=== PATIENT | male | born 1945 | race Caucasian/White ===

== ENCOUNTER 2019-01-10 15:56 | Emergency (ER) | payer MEDICARE, BC ==
[~2019-01-10] VITALS: Ht 172.7 cm; Wt 59.0 kg
[2019-01-10] MEDS ORDERED: GABA400 PO (16:09)
[2019-01-10] MEDS ORDERED: ATOR80 PO (16:10)
[2019-01-10] MEDS ORDERED: ANORO ELLIPTA1 EACH INH (16:16)
[2019-01-10 17:22] LABS: BASOPHILS ABSOLUTE AUTO 0.03 K/mm3 (0.00-0.23); BASOPHILS PERCENT AUTO 1 % (0-2); EOSINOPHILS ABSOLUTE AUTO 0.08 K/mm3 (0.00-0.68); EOSINOPHILS PERCENT AUTO 1 % (0-6); Hematocrit 42.8 % (37.0-53.0); Hemoglobin 14.5 g/dL (13.5-17.5); IMMATURE GRAN ABSOLUTE AUTO 0.01 K/mm3 (0.00-0.10); IMMATURE GRAN PERCENT AUTO 0 % (0-1); LYMPHOCYTES ABSOLUTE AUTO 2.16 K/mm3 (0.84-5.20); LYMPHOCYTES PERCENT AUTO 33 % (21-46); MONOCYTES ABSOLUTE AUTO 0.48 K/mm3 (0.16-1.47); MONOCYTES PERCENT AUTO 7 % (4-13); Mean Corpuscular HGB 33.6 pg (26.0-34.0); Mean Corpuscular HGB Conc 33.9 g/dL (31.5-36.5); Mean Corpuscular Volume 99 fL (80-100); Mean Platelet Volume 9.8 fL (9.1-12.4); NEUTROPHILS ABSOLUTE AUTO 3.72 K/mm3 (1.96-9.15); NEUTROPHILS PERCENT AUTO 57 % (41-73); Platelet Count 231 K/mm3 (150-400); RDW Coefficient Variation 13.2 % (11.7-14.2); RDW Standard Deviation 48.9 fL (35.1-46.3); Red Blood Cell Count 4.31 M/mm3 (4.30-5.90); White Blood Cell Count 6.48 K/mm3 (4.00-11.30)
[2019-01-10 17:40] LABS: Alanine Aminotransfer (ALT/SGP 38 U/L (12-78); Albumin, Blood 3.3 g/dL (3.4-5.0); Albumin/Globulin Ratio 0.9 (0.8-1.8); Alk Phos 73 U/L (50-136); Anion Gap 7 mmol/L (6-16); Aspartate Aminotrans (AST/SGOT 34 U/L (12-37); Bilirubin, Total 0.6 mg/dL (0.1-1.0); Blood Urea Nitrogen 9 mg/dL (8-24); Bun/Creatinine Ratio 13.3 (12.0-20.0); CO2, Blood 28 mmol/L (21-32); Calcium, Blood 8.4 mg/dL (8.5-10.1); Chloride, Blood 104 mmol/L (98-108); Creatinine, Blood 0.68 mg/dL (0.60-1.20); Globulin, Blood 3.5 g/dL (2.2-4.0); Glomerular Filtration Rate >60 (60-); Glucose, Blood 108 mg/dL (70-99); Potassium, Blood 4.1 mmol/L (3.5-5.5); Sodium, Blood 139 mmol/L (136-145); Total Protein, Blood 6.8 g/dL (6.4-8.2)
== END 2019-01-10 18:30 | disposition home or self-care (01) ==
LOC: ER 15:56
PROVIDERS: Emergency Medicine
DX: R55 Syncope and collapse (principal); E78.5 Hyperlipidemia, unspecified; F17.200 Nicotine dependence, unspecified, uncomplicated; Z86.73 Personal history of transient ischemic attack (TIA), and cerebral infarction without residual deficits; Z79.899 Other long term (current) drug therapy
CPT/HCPCS: 80053; 85025; 93005; 93010; 99284-25

== ENCOUNTER → 2020-10-10 | Outpatient (CLI) | payer MEDICARE, BC ==
[~2020-10-10] MED LIST: ANORO ELLIPTA1 EACH INH; ATOR80 PO; GABA400 PO
== END ==
LOC: LAB SHORT 15:00 → LAB 15:00
DX: L21.8 Other seborrheic dermatitis (principal); L57.0 Actinic keratosis; L08.9 Local infection of the skin and subcutaneous tissue, unspecified; L57.8 Other skin changes due to chronic exposure to nonionizing radiation; L81.4 Other melanin hyperpigmentation; L85.3 Xerosis cutis; D48.5 Neoplasm of uncertain behavior of skin
CPT/HCPCS: 87070; 87205